=== PATIENT | female | born 1960 | race Caucasian/White ===

== ENCOUNTER 2016-06-19 09:49 | Day surgery (SDC) | payer OTHER ==
[~2016-06-19] VITALS: Ht 152.4 cm; Wt 54.4 kg
--- NOTE | 2016-06-19 07:27 | PCM.HPANE ---
Patient Data Surgeon Admitting Provider: Attending Provider:Slade Ware MD Primary Care Physician:Slade Russo MD Other Provider:[facility] Reason for Visit Gerd With Esophagitis Ht/WT & BMI Body Mass Index Allergies Coded Allergies: amoxicillin (Verified Allergy, Unknown, 06/17/16) shellfish derived (Verified Allergy, Unknown, 06/17/16) Uncoded Allergies: Penicillin (Allergy, Unknown, 05/05/05) Sulfa (Allergy, Unknown, 05/05/05) CODEINE (Generic ADR) (Adverse Reaction, Unknown, Y, 05/05/05) Medications Reported Medications Bupropion ER (Wellbutrin SR)150 Mg Tablet.er150 Mg PO BID Ref 0 06/17/[address] (Protonix)40 Mg [id number] Mg PO DAILY Ref 0 06/17/16 Ondansetron 8 Mg Tablet8 Mg PO BID 06/17/16 Hydrocodone-Acetaminophen 7.5-325 mg 1 Each Tablet1 Tablet PO Q4H PRN For Pain Ref 0 06/17/16 Fluticasone Propionate (Flonase Allergy Relief)50 Mcg/Actuation [facility].susp1 [facility] NS DAILY 06/17/16 Estradiol (Estring)1 Each Vag.ring1 Each VG [id number] 06/17/16 Diazepam 5 Mg Tablet5 Mg PO TID PRN For Anxiety Ref 0 06/17/16 Acyclovir 400 Mg [id number] Mg PO DIRECTED Ref 0 06/17/16 Discontinued Reported Medications Methadone 5 Mg Tablet5 Mg PO TID 06/17/16 Stop/Bang Risk Assessment Category Category 1A: Patient has history of documented sleep apnea, and HAS NOT received any narcotic, sedative or anesthesia administration during this stay. Category 1B: Patient has history of documented sleep apnea, and HAS received any narcotic , sedative or anesthesia administration during this stay Category 2: Patient has SUSPECTED Obstructive Sleep Apnea, and HAS received any narcotic , sedative or anesthesia administration during this stay. Category 3: Patient has SUSPECTED Obstructive Sleep Apnea and HAS NOT received narcotic, sedative or anesthesia administration during this stay. Category 4: Outpatient in Procedural Areas with known sleep apnea or who screen positive for High Risk via the STOP/BANG questionnaire. Exam Exam General Appearance: Alert, Oriented X3, Cooperative, No Acute Distress HEENT/AIRWAY: MP 2 Lungs: Clear to Auscultation, Normal Air Movement Heart: Exam Unremarkable, Regular Rate/Rhythm, No Murmurs/Rubs/Gallops Plan Impression Patient chart reviewed, patient interviewed and anesthestic plan with risks, benefits, and alternatives discussed, and informed consent obtained. ASA Physical Status: ASA2 Mod Systemic Disease Anesthetic Plan: MAC Bene/Risks/Altern/Consents: Yes HP Complete Prior to Induction: Yes Bon Isabel MD Jun 19, 2016 07:27
[~2016-06-19 09:49] MED LIST: ACYC400T2 PO; BUPR150T8 PO; DIAZ5TAB3 PO; ESTR1VAG VG; FLUT9.9S NS; HYDR-3825 PO; METH5TAB3 PO; ONDA-54 PO; PANT40TA2 PO
[2016-06-19] MEDS ORDERED: fentaNYL-PF 50 mCg/mL 2 mL Inj ONE (09:50)
[2016-06-19] MEDS ORDERED: Propofol 10,000 mCg/mL 20 mL Inj ONE ×2 (09:50)
[2016-06-19 10:31] VITALS: BP 114/75; PULSE 81; RESP 14; O2SAT 98
[2016-06-19] MEDS: Lactated Ringer's 1,000 ML IV SCH ×2 (10:32→11:48)
--- NOTE | 2016-06-19 11:01 | PCM.ENDEGD ---
EGD Date of Service: Jun 19, 2016 Physician Slade Ware MD Pre Procedure Diagnosis: Reflux dysphagia Post Procedure Dx & Findings: Fundic polyps Procedure Esophagogastroduodenoscopy PROCEDURE IN DETAIL: The patient was placed in left lateral decubitus position. Bite block was placed. Scope lubricated, placed in posterior pharynx, passed through the cricopharyngeus and esophagus, slowly advanced the entire length of the gastric pouch, pylorus was identified, scope passed through the pylorus and descending portion of duodenum, withdrawn in the antrum, retroflexed upon itself for view of fundus and cardia. Scope was then withdrawn through the oropharynx. The esophagus appeared normal without ulcer or mass erosion. Z line was intact at 41 cm. Scope further advanced to the stomach. There were several 1-3 mm fundic polyps. Sampling biopsies obtained using cold forceps. Stomach was easily inflatable and deflated wheezing air. Retroflexion was done. Cardia fundus body antrum and pylorus were visualized. Scope further advanced into the duodenum distal. Visualized mucosa show normal healthy villous structures and normal-appearing folds. Impression Fundic polyps Cannot find the cause of dysphagia Recommendation Follow up in GI clinic Presedation Assessment Risks and Benefits Informed consent was obtained from the patient after all risks and benefits including but not limited to drug reaction, infection, pain, bleeding, perforation, as well as alternatives were discussed. Patient monitoring Continuous pulse oximetry, cardiac monitoring, blood pressure monitoring, IV access, and oxygen at 2L per nasal cannula. Complications There were no periprocedural complications identified. Post Procedure Plan Post Procedure Recommendations 1. Restrict activities today. 2. Resume normal activities in the morning. 3. Resume medications. 4. GERD behavioral modification: - Avoid fatty, acidic, spicy, large meals - Do not lie down after meals - Do not eat or drink anything for at least 2 1/2 hours before going to bed at night - Discontinue tobacco and alcohol - Decrease or avoid caffeine - Avoid chocolate and mints - Decrease weight - Avoid aspirin and non steroidal anti-inflammatory agents (NSAID) such as Aleve, Advil, Mobic, Naproxen, Ibuprofen, etc 5. Add proton pump inhibitor. Take 30 minutes before 1st meal of the day. 6. Patient informed of normal post procedure side effects as bloating, drowsiness, blood streaking in the stool 7. If gastric biopsy reveal H.pylori, continue with appropriate treatment 8. If small bowel biopsy reveals celiac, continue with appropriate treatment 9. Please don't hesitate to call me with any questions Slade Ware MD Jun 19, 2016 11:01
[2016-06-19] MEDS ORDERED: Lactated Ringer's 1,000 ML IV SCH (11:26)
--- NOTE | 2016-06-19 11:27 | PCM.ANEP1 ---
Post Anesthesia Phase 1 PACU Phase 1 Assessment Date of Service: Jun 19, 2016 Vital Signs Vital Signs Date Time Temp Pulse Resp B/P Pulse Ox O2 Delivery O2 Flow Rate FiO2 06/19/16 10:31 81 14 114/75 98 Room Air Anesthetic Administered: MAC Level of Alertness: Awake, talking GIRON's with Equal Strength: Yes Pain: No Nausea or Vomiting: No Oxygen Delivery: Nasal Cannula Lungs: Clear to Auscultation, Normal Air Movement Bon Isabel MD Jun 19, 2016 11:27
--- NOTE | 2016-06-19 11:27 | PCM.ANEP2 ---
Post Anesthesia Evaluation ASA/CMS Post Anesthesia VS in Patient's Normal Range?: Yes Resp Stable; Airway Patent?: Yes CV Function & Hydration Stable: Yes Mental Status Recovered?: Yes Pain control Satisfactory?: Yes N/V Control Satisfactory?: Yes Bon Isabel MD Jun 19, 2016 11:27
--- NOTE | 2016-06-19 11:29 | PCM.ENDCOL ---
Colonoscopy Date of Service: Jun 19, 2016 Physician Slade Ware MD Pre Procedure Diagnosis: Family history of colon cancer Post Procedure Dx & Findings: Polyp hemorrhoids Procedure Colonoscopy Prep adequate Withdrawal 14 minutes PROCEDURE IN DETAIL: After unremarkable rectal examination Olympus video colonoscope was inserted patient's anal canal and was advanced to cecum. Landmarks are identified including the ileocecal valve and the appendiceal orifice. Scope was withdrawn systematically. The mucosa of the cecum, ascending, transverse, descending, sigmoid, rectal mucosa lined with whitish, pink, smooth, glistening, normal-appearing mucosa, normal fine branching, underlying vascularity, normal haustra. In the transverse colon there was a 1 mm polyp which was removed completely using cold forceps. In the descending colon there was a 1 mm polyp which was removed completely using cold forceps. In the rectum retroflexion was done which showed hemorrhoids. Anal canal was inspected carefully on the way out and hemorrhoids noted. Impression Polyp 2 status post complete removal Hemorrhoids Family history of colon cancer Recommendation A colonoscopy 5 years Presedation Assessment Risks and Benefits Informed consent was obtained from the patient after all risks and benefits including but not limited to drug reaction, infection, pain, bleeding, perforation, as well as alternatives were discussed. Patient monitoring Continuous pulse oximetry, cardiac monitoring, blood pressure monitoring, IV access, and oxygen at 2L per nasal cannula. Complications There were no periprocedural complications identified. Post Procedure Plan Post Procedure Recommendations 1. Restrict activities today. 2. Resume normal activities in the morning. 3. Resume medications. 4. Patient informed of normal post procedure side effects as bloating, drowsiness, blood streaking in the stool. 5. average risk CRCS. If colon polyps come back as: -Hyperplastic- can repeat colonoscopy in 10 years -Tubular adenoma- repeat colonoscopy in 5 years -Tubulovillous/villous adenoma- repeat colonoscopy in 3 years -If any dysplasia- return to clinic as soon as possible 6. Please don't hesitate to call me with any questions. Slade Ware MD Jun 19, 2016 11:29
[2016-06-19] MEDS ORDERED: Ondansetron 2 mg/mL 2 mL Inj IVPUSH PRN (11:30)
[2016-06-19] MEDS ORDERED: MetoCLOpramide 5 mg/mL 2 mL Inj IVPUSH PRN (11:30)
[2016-06-19 11:31] VITALS: BP 87/64; PULSE 70; RESP 10; O2SAT 100
[2016-06-19 11:42] VITALS: BP 95/61; PULSE 80; RESP 14; O2SAT 100
[2016-06-19 11:48] VITALS: BP 112/7
--- NOTE | 2016-06-20 14:39 | PATH ---
SURGICAL PATHOLOGY Attending Physician:Slade Ware M.D. CASE STATUS: Signed Out PATIENT NAME: EDIN DONNELLY PID: [id number] : 1960 DATE COLLECTED:06/19/2016 18:45 SPECIMEN: 1: Stomach, Polyp, Biopsy 2: Colon, Biopsy 3: Colon, Biopsy CLINICAL HISTORY: GERD, POLYPS 1).GASTRIC FUNDUS POLYP BIOPSY 2).TRANSVERSE COLON POLYP X1 3).DESCENDING COLON POLYP X1 FINAL DIAGNOSIS: 1.GASTRIC FUNDUS POLYP, BIOPSY: BENIGN FUNDIC GLAND POLYP, NEGATIVE FOR ATYPIA. Negative for evidence of Helicobacter. Negative for intestinal metaplasia. 2.TRANSVERSE COLON POLYP: TUBULAR ADENOMA. 3.DESCENDING COLON POLYP: TUBULAR ADENOMA. ICD10 CODE D12.3 GROSS DESCRIPTION: The specimen is received in three formalin filled containers labeled with the patient's name. 1). The specimen is sublabeled "gastric fundus polyp" and consists of 2 portions of tissue which aggregate to 0.3 x 0.3 x 0.2 CM. The specimen is entirely submitted in cassette 1A. 2). The specimen is sublabeled "transverse colon polyp" and consists of a 0.5 x 0.3 x 0.2 CM portion of tissue which is entirely submitted in cassette 2A. 3). The specimen is sublabeled "descending colon polyp" and consists of a 0.2 x 0.2 x 0.1 CM portion of tissue which is entirely submitted in cassette 3A. 06/19/2016 DAC MICRO DESCRIPTION: See diagnosis. ICD-9 CODES: CPT CODES: 1: 12240 2: 59911 3: 72487 Electronically Signed Out Deion Matos MD [facility] [address], [place] [address] Technical component performed at [facility], [facility] [address], [place], [address]
== END 2016-06-19 23:59 | disposition home or self-care (01) ==
LOC: END 09:49
PROVIDERS: ATTEND Internal Medicine
DX: Z12.11 Encounter for screening for malignant neoplasm of colon (principal); Z80.0 Family history of malignant neoplasm of digestive organs; D12.3 Benign neoplasm of transverse colon; D12.4 Benign neoplasm of descending colon; K64.9 Unspecified hemorrhoids; K21.0 Gastro-esophageal reflux disease with esophagitis; K31.7 Polyp of stomach and duodenum; I48.91 Unspecified atrial fibrillation
CPT/HCPCS: 43239; 45380; J2250; J3010; J7120